=== PATIENT | male | born 1980 | race Caucasian/White ===

== ENCOUNTER 2019-06-19 15:13 | Observation (INO) | payer SELFPAY ==
[~2019-06-19 15:13] MED LIST: ISOVUE-370 76%-LOCM 1 ML ONE
[2019-06-19] MEDS ORDERED: Adacel (T-DAP) 0.5 ML SYRINGE ONE ×2 (15:23→15:26)
[2019-06-19] MEDS ORDERED: Sodium Chloride 0.9% 0 ML ONE (15:26)
[2019-06-19] MEDS ORDERED: CEFAZOLIN 1 GM VIAL ONE (15:26)
[2019-06-19 15:31] LABS: #Eosinphils 0.1 thou/uL (0.0-0.7); #Lymphocytes 3.3 thou/uL (1.20-3.40); #Monocytes 0.8 thou/uL (0.11-0.59); #Neutrophils 2.8 thou/uL (1.40-6.50); %Basophils 0.4 % (0.0-1.0); %Eosinophils 0.8 % (0.0-10.0); %Monocytes 11.4 % (0.0-10.0); %Neutrophils 40.4 % (42.0-75.0); Hemoglobin 16.1 g/dL (14.0-18.0); Mean Corpuscular HGB CONC 34.5 g/dL (32.0-36.0); Mean Corpuscular Hemoglobin 32.2 pg (27.0-31.0); Mean Corpuscular Volume 93.2 fL (78.0-98.0); Mean Platelet Volume 6.2 fL (7.4-10.4); Platelet Count 271 thou/uL (130-400); RBC Distribution Width 11.7 % (11.5-14.5); Red Blood Cell (RBC) Count 5.02 mill/uL (4.70-6.10); White Blood Cell (WBC) Count 6.9 thou/uL (4.8-10.8)
[2019-06-19 15:35] LABS: PTT 28.3 SEC (22.9-36.1)
[2019-06-19 15:37] LABS: Prothrombin Time 12.8 SEC (12.0-14.7)
[2019-06-19 15:38] LABS: Lactic Acid 2.2 mmol/L (0.5-2.2)
--- NOTE | 2019-06-19 15:40 | RAD ---
XR Pelvis AP STANDARD History: Emergency exam Comparison: None. Findings: The obturator rings are intact. No acute fracture. SI joints are normal. L5 transverse proc esses are intact. Sacral struts are intact. Impression: No acute osseous abnormality.
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
[2019-06-19 15:53] LABS: ALT (SGPT) 32 U/L (8-55); AST (SGOT) 24 U/L (5-34); Albumin 3.9 g/dL (3.5-5.0); Alkaline Phosphatase 63 U/L (40-150); Anion Gap 13 mmol/L (10-20); BUN (Urea Nitrogen) 14 mg/dL (8.9-20.6); Bilirubin, Total 0.2 mg/dL (0.2-1.2); Calc. Creatinine Clearance 0 mL/min (70-130); Calcium 8.4 mg/dL (7.8-10.44); Carbon Dioxide 22 mmol/L (22-29); Chloride 108 mmol/L (98-107); Estimated GFR-MDRD Greater than 90; Globulin 2.8 g/dL (2.4-3.5); Glucose 101 mg/dL (70-105); Potassium 3.6 mmol/L (3.5-5.1); Protein, Total 6.7 g/dL (6.0-8.3); Sodium 139 mmol/L (136-145)
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
[2019-06-19 16:04] LABS: Magnesium 2.1 mg/dL (1.6-2.6)
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
[2019-06-19] MEDS ORDERED: Dextrose 50% Abboject 50 ML SYRINGE SLOW IVP PRN (16:38)
[2019-06-19] MEDS ORDERED: Promethazine HCl 25 MG/ML VIAL IM PRN (16:38)
[2019-06-19] MEDS ORDERED: Ondansetron PF 4 MG/2 ML Vial IVP PRN (16:38)
[2019-06-19] MEDS ORDERED: hydrALAZINE 20 MG/ML VIAL SLOW IVP PRN (16:38)
[2019-06-19] MEDS ORDERED: Dextrose 5% in Water 1,000 ML IV PRN (16:38)
[2019-06-19] MEDS ORDERED: traMADol HCl 50 MG TAB PO PRN (16:40)
[2019-06-19] MEDS ORDERED: Morphine 4 MG/ML VIAL ONE (16:48)
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
[2019-06-19] MEDS ORDERED: Ondansetron PF 4 MG/2 ML Vial ONE ×2 (16:49→18:33)
[2019-06-19 16:50] LABS: Bacteria/HPF None Seen HPF (None Seen); Bilirubin Negative (Negative); Blood, Urine Negative (Negative); Clarity Clear (Clear); Glucose, Urine (Dipstick) Normal (Negative); Leukocyte Negative Leu/uL (Negative); Nitrite Negative (Negative); Protein, Urine (Dipstick) Negative (Neg-Trace); RBC/HPF 0-3 HPF (0-3); Squamous Epithelial None Seen HPF (0-3); Urobilinogen Normal mg/dL (Less than 2); WBC/HPF 0-3 HPF (0-3)
[2019-06-19 16:59] LABS: Amphetamine Not Detected (NotDetected); Barbiturates Screen Not Detected (NotDetected); Benzodiazepine Screen Not Detected (NotDetected); Cocaine Metabolite Screen Not Detected (NotDetected); Medtox Control Line Valid? VALID (VALID); Medtox Reader # READER 4; Methadone Not Detected (NotDetected); Methamphetamine Not Detected (NotDetected); Opiate Screen Not Detected (NotDetected); Oxycodone Screen Not Detected (NotDetected); Phencyclidine (PCP) Not Detected (NotDetected); THC/Cannabinoid Screen Not Detected (NotDetected); Tricyclic Screen Not Detected (NotDetected)
[2019-06-19] MEDS ORDERED: Bacitracin 1 PK ONE ×2 (17:17→17:27)
[2019-06-19] MEDS ORDERED: Lidocaine 4% Cream 5 GM TUBE w/ Tegaderm ONE (17:27)
[2019-06-19] MEDS ORDERED: Promethazine HCl 25 MG/ML VIAL ONE (18:30)
[2019-06-19] MEDS ORDERED: Promethazine HCl 25 MG/ML VIAL IVPB PRN (18:34)
[2019-06-19] MEDS ORDERED: Acetaminophen 500 MG TAB PO SCH (19:15)
[2019-06-19] MEDS: Sodium Chloride 0.9% 1,000 ML IV SCH (19:21)
[2019-06-19 19:31] VITALS: BMI 31.2
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
[2019-06-19] MEDS: traMADol HCl 50 MG TAB PO PRN (20:01)
[2019-06-19] MEDS: Senokot S 8.6-50 MG TAB PO SCH (20:01)
[2019-06-19] MEDS: Famotidine/PF 20 mg/2ml Vial SLOW IVP SCH (20:03)
[2019-06-19] MEDS ORDERED: Cyclobenzaprine 10 MG TAB PO PRN (21:14)
[2019-06-19] MEDS: Ibuprofen 800 MG TAB PO SCH (21:28)
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
[2019-06-19] MEDS: Acetaminophen 500 MG TAB PO SCH (23:18)
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
[2019-06-20] MEDS: Sodium Chloride 0.9% 1,000 ML IV SCH ×2 (03:31→12:28)
[2019-06-20 05:10] LABS: Anion Gap 12 mmol/L (10-20); BUN (Urea Nitrogen) 13 mg/dL (8.9-20.6); Calc. Creatinine Clearance 159 mL/min (70-130); Carbon Dioxide 18 mmol/L (22-29); Chloride 110 mmol/L (98-107); Estimated GFR-MDRD Greater than 90; Glucose 76 mg/dL (70-105); Magnesium 1.7 mg/dL (1.6-2.6); Phosphorus 2.6 mg/dL (2.3-4.7); Potassium 4.1 mmol/L (3.5-5.1); Sodium 136 mmol/L (136-145)
[2019-06-20] MEDS: Ibuprofen 800 MG TAB PO SCH (05:18)
[2019-06-20] MEDS: Acetaminophen 500 MG TAB PO SCH ×2 (05:18→12:25)
[2019-06-20 06:15] LABS: Band 4 % (5-11); Eosinophils 1 % (0-10); Hemoglobin 14.9 g/dL (14.0-18.0); Lymphocytes 36 % (21-51); MDiff Complete? YES; Mean Corpuscular HGB CONC 33.8 g/dL (32.0-36.0); Mean Corpuscular Hemoglobin 32.2 pg (27.0-31.0); Mean Corpuscular Volume 95.2 fL (78.0-98.0); Mean Platelet Volume 6.6 fL (7.4-10.4); Monocytes 10 % (0-10); Neutrophil 49 % (42-75); Platelet Count 243 thou/uL (130-400); Platelet Morphology Comment Appears Adequate; RBC Distribution Width 11.7 % (11.5-14.5); Red Blood Cell (RBC) Count 4.62 mill/uL (4.70-6.10); White Blood Cell (WBC) Count 5.5 thou/uL (4.8-10.8)
[2019-06-20] MEDS ORDERED: Folic Acid 1 MG TAB PO SCH (09:00)
[2019-06-20] MEDS ORDERED: Polyethylene Glycol 3350 17 GM Packet PO SCH (09:00)
[2019-06-20] MEDS ORDERED: Thiamine 100 MG TAB PO SCH (09:00)
[2019-06-20] MEDS: traMADol HCl 50 MG TAB PO PRN (09:10)
[2019-06-20] MEDS: Senokot S 8.6-50 MG TAB PO SCH (09:11)
[2019-06-20] MEDS: Famotidine/PF 20 mg/2ml Vial SLOW IVP SCH (09:11)
[2019-06-20 11:56] VITALS: BP 125/84; TEMP 98.2
[2019-06-20] MEDS ORDERED: Oxazepam 10 MG CAP PO SCH (12:00)
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
== END 2019-06-20 12:33 | disposition home or self-care (01) ==
LOC: ERS 15:13 → SURG A 16:38
PROVIDERS: ADMIT Surgery; ATTEND Surgery
DX: S06.0X9A Concussion with loss of consciousness of unspecified duration, initial encounter (principal); F10.129 Alcohol abuse with intoxication, unspecified; R40.2412 Glasgow coma scale score 13-15, at arrival to emergency department; M06.9 Rheumatoid arthritis, unspecified; Z79.899 Other long term (current) drug therapy; Z88.5 Allergy status to narcotic agent; V89.2XXA Person injured in unspecified motor-vehicle accident, traffic, initial encounter; Y90.8 Blood alcohol level of 240 mg/100 ml or more
CPT/HCPCS: 36415; 70450; 70486; 71045; 71260; 72125; 72170; 74177; 80048; 80053; 80306; 80307; 81001; 83605; 83690; 83735; 84100; 85025; 85610; 85730; 86850; 86900; 86901; 90471; 90715; 96360; 96361; 96365; 96375; 96376; G0378; G0390; J0690; J2270; J2405; J2550; J3490; Q9966; S0028